=== PATIENT | male | born 1990 | race Caucasian/White ===

== ENCOUNTER 2020-11-07 11:42 | Emergency (ER) | payer OTHER ==
[~2020-11-07] VITALS: Ht 172.7 cm; Wt 77.1 kg
[2020-11-07 11:45] VITALS: Ht 172.7 cm; Wt 77.1 kg
[2020-11-07 14:54] VITALS: BP 138/82
== END 2020-11-07 14:54 ==
LOC: ED 11:42
DX: Z02.89 Encounter for other administrative examinations (principal)